=== PATIENT | male | born 1970 | race African-American/Black ===

== ENCOUNTER 2017-03-06 20:34 | Emergency (ER) | payer OTHER ==
[~2017-03-06] VITALS: Ht 195.6 cm; Wt 79.4 kg
[2017-03-06 20:42] VITALS: BP 139/93
--- NOTE | 2017-03-06 22:41 | NUR ---
TO ER OF4
--- NOTE | 2017-03-06 22:47 | NUR ---
Patient being evaluated by physician.
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
[2017-03-07] MEDS ORDERED: LIDOCAINE/EPI 1% 1:100000 20 ML VIAL INJ ONE ×2 (00:15→00:18)
--- NOTE | 2017-03-07 00:15 | NUR ---
PERFORMS SUTURE AT BEDSIDE.
[2017-03-07] MEDS ORDERED: BACITRACIN OINT 500 UNITS/GM PKT TP ONE (00:33)
[2017-03-07 00:45] VITALS: BP 128/89
--- NOTE | 2017-03-07 00:45 | NUR ---
Patient discharged with v/s stable. Written and verbal after care instructions given and explained. Patient verbalized understanding. Ambulatory with to home. All questions addressed prior to discharge. Advised to follow up with PMD.
== END 2017-03-07 00:45 | disposition home or self-care (01) ==
LOC: MED 20:34
CPT/HCPCS: 12001; 82948; 90471; 90715; 99283; J2001

== ENCOUNTER 2017-03-15 07:46 | Emergency (ER) | payer OTHER ==
[~2017-03-15] VITALS: Ht 193 cm; Wt 74.1 kg
[2017-03-15 08:07] VITALS: BP 150/92
--- NOTE | 2017-03-15 08:15 | NUR ---
PATIENT PRESENTS TO ED WITH SUTURE REMOVAL RIGHT ELBOW SUTURES INTACT . PT STATES . DENIES N/V/D; SKIN IS PINK/WARM/DRY; AAOX4 WITH EVEN AND STEADY GAIT; LUNGS CLEAR BL; HR EVEN AND REGULAR; PT DENIES ANY FEVER, CP, SOB, OR COUGH AT THIS TIME; PATIENT STATES PAIN OF 0/10 AT THIS TIME; VSS; PATIENT POSITIONED FOR COMFORT; HOB ELEVATED; BEDRAILS UP X2; BED DOWN. ER MD MADE AWARE OF PT STATUS.
--- NOTE | 2017-03-15 08:19 | NUR ---
DR.NELSON VALLE PT IN TRIAGE
[2017-03-15 08:27] VITALS: BP 150/92
--- NOTE | 2017-03-15 08:27 | NUR ---
REMOVED 3 SUTURES FROM RIGHT ELBOW---SKIN REMAINS INTACT---CLEAN DRESSING APPLIED
--- NOTE | 2017-03-15 08:28 | NUR ---
Patient discharged with v/s stable. Written and verbal after care instructions given and explained. Patient verbalized understanding. Ambulatory with steady gait. All questions addressed prior to discharge. Advised to follow up with PMD.
== END 2017-03-15 08:28 | disposition home or self-care (01) ==
LOC: MED 07:46
DX: S51.011D Laceration without foreign body of right elbow, subsequent encounter (principal); F17.210 Nicotine dependence, cigarettes, uncomplicated; F12.90 Cannabis use, unspecified, uncomplicated; X58.XXXD Exposure to other specified factors, subsequent encounter
CPT/HCPCS: 99283

== ENCOUNTER 2020-07-20 08:07 | Emergency (ER) | payer OTHER ==
[~2020-07-20] VITALS: Ht 195.6 cm; Wt 81.6 kg
[2020-07-20 08:12] VITALS: BP 140/66
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
[2020-07-20] MEDS ORDERED: IBUPROFEN 600 MG TAB PO ONE (08:25)
[2020-07-20] MEDS ORDERED: CYCLOBENZAPRINE 10 MG TAB PO ONE (08:25)
[2020-07-20] MEDS ORDERED: LIDOCAINE 5% 1 EA PATCH TP SCH (09:00)
--- NOTE | 2020-07-20 09:10 | NUR ---
Patient discharged with v/s stable. Written and verbal after care instructions about lower back pain strain with rehab given and explained. Patient alert, oriented and verbalized understanding of instructions. Ambulatory with steady gait. All questions addressed prior to discharge. ID band removed. Patient advised to follow up with PMD. Rx of flexeril, lidoderm, and motrin given. Patient educated on indication of medication including possible reaction and side effects. Opportunity to ask questions provided and answered.
[2020-07-20 09:14] VITALS: BP 140/66
== END 2020-07-20 09:10 | disposition home or self-care (01) ==
LOC: MED 08:07
DX: S09.90XA Unspecified injury of head, initial encounter (principal); M54.5 Low back pain; F17.210 Nicotine dependence, cigarettes, uncomplicated; W19.XXXA Unspecified fall, initial encounter; Y93.89 Activity, other specified; Y92.89 Other specified places as the place of occurrence of the external cause; Y99.8 Other external cause status
CPT/HCPCS: 72220; 99283; 99284

== ENCOUNTER 2021-08-13 14:35 | Emergency (ER) | payer MEDICAID, OTHER ==
[~2021-08-13] VITALS: Ht 195.6 cm; Wt 77.1 kg
[2021-08-13 15:12] VITALS: BP 156/95
--- NOTE | 2021-08-13 15:30 | NUR ---
PT AMB TO BED 11
[2021-08-13] MEDS ORDERED: FLUORESCEIN OPTH STRIP 1 MG OP ONE (15:35)
[2021-08-13] MEDS ORDERED: TETRACAINE HCL/PF 0.5% OPTH 4 ML BTL OP ONE (15:35)
--- NOTE | 2021-08-13 16:05 | NUR ---
50 y/o M BIB self from home c/o R eye discomfort x 4 days. Patient A&Ox4, ambulatory, states he was cleaning his eye and poked himself by accident. States 6/10 discomfort type pain to R eye. Reddened sclera noted; patient states blurry vision with a "murphy spot" to right side of eye. Denies medications prior to arrival. Bed locked in lowest position, side rails x 1, call light in reach. PMH/Sx/meds: Denies NKDA
[2021-08-13] MEDS ORDERED: TOMOMETER 1 DEV DEV MC ONE (16:27)
[2021-08-13] MEDS ORDERED: IBUP-2213 PO (16:46)
[2021-08-13] MEDS ORDERED: ERYT5OIN51 OP (16:46)
--- NOTE | 2021-08-13 17:05 | NUR ---
Patient discharged with v/s stable. Written and verbal after care instructions given and explained. Patient alert, oriented and verbalized understanding of instructions. Ambulatory with steady gait. All questions addressed prior to discharge. ID band removed. Patient advised to follow up with PMD. Rx of Ibuprofen, Erythromycin Ointment given. Patient educated on indication of medication including possible reaction and side effects. Opportunity to ask questions provided and answered.
== END 2021-08-13 17:05 | disposition home or self-care (01) ==
LOC: MED 14:35
DX: H10.9 Unspecified conjunctivitis (principal); I10 Essential (primary) hypertension; Z79.1 Long term (current) use of non-steroidal anti-inflammatories (NSAID); Z79.2 Long term (current) use of antibiotics
CPT/HCPCS: 99283